=== PATIENT | female | born 1965 | race Caucasian/White ===

== ENCOUNTER 2020-03-12 09:46 | Day surgery (SDC) | payer BC, OTHER ==
[~2020-03-12 09:46] MED LIST: Lactated Ringers 1,000 ML IV SCH; Midazolam 1 MG/ML 2 ML SDV ONE; Propofol 200 MG/20 ML SDV ONE; Sodium Chloride 0.9% 10 ML Syringe FLUSH PRN
--- NOTE | 2020-03-12 12:09 | PCM.PN ---
- General Info Date of Service: 03/12/20 - Review of Systems Systems Review Comment:: 54-year-old female here for right carpal tunnel release. She has a history of numbness and tingling in the fingers of the right hand over the last year. Symptoms have been gradually worsening. She underwent an EMG study which confirmed carpal tunnel syndrome. The site of the proposed surgery is confirmed with the patient and marked. I discussed with her the proposed right carpal tunnel release. We reviewed the operative procedure expectations and perioperative instructions. I also discussed with her that she may not regain full strength in that hand for a few weeks. Her questions were answered and risks reviewed she agrees to proceed. - Patient Data Vitals - Most Recent: Last Vital Signs Temp 97.9 F 03/12/20 10:22 Pulse 70 03/12/20 10:22 Resp 20 03/12/20 10:22 BP 115/69 03/12/20 10:22 Pulse Ox 96 03/12/20 10:22 Weight - Most Recent: 102.058 kg Lab Results Last 24 Hours: Laboratory Results - last 24 hr 03/12/20 Range/Units 10:00 HCG, Qual Negative (NEGATIVE) Med Orders - Current: Current Medications Lactated Ringer's (Ringers, Lactated) 1,000 mls @ 125 mls/hr IV ASDIRECTED [place] Last Admin: 03/12/20 10:35 Dose: 125 mls/hr Documented by: Sodium Chloride (Saline Flush) 10 ml FLUSH ASDIRECTED PRN PRN Reason: Keep Vein Open Discontinued Medications Midazolam HCl (Versed 1 Mg/Ml) Confirm Administered Dose 2 mg .ROUTE .STK-MED ONE Stop: 03/12/20 08:24 Propofol (Diprivan 20 Ml) Confirm Administered Dose 400 mg .ROUTE .STK-MED ONE Stop: 03/12/20 08:24 Sepsis Event Note - Focused Exam Vital Signs: Vital Signs Temp Pulse Resp BP Pulse Ox 03/12/20 10:22 97.9 F 70 20 115/69 96 - Problem List Review Problem List Initiated/Reviewed/Updated: Yes - Assessment Assessment:: Right carpal tunnel syndrome - Plan Plan:: Right carpal tunnel release
[2020-03-12] MEDS ORDERED: Propofol 200 MG/20 ML SDV ONE (12:23)
[2020-03-12] MEDS ORDERED: Midazolam 1 MG/ML 2 ML SDV ONE (12:23)
[2020-03-12] MEDS ORDERED: Bupivacaine 0.25%/EPINEPHrine 1:200,000 30 ML SDV INFILT ONE (12:40)
--- NOTE | 2020-03-12 13:14 | PCM.OPNOTE ---
- General Post-Op/Procedure Note Date of Surgery/Procedure: 03/12/20 Operative Procedure(s): Right Carpal Tunnel Release Findings: Thickening of the right transverse carpal ligament Structures otherwise appear normal Pre Op Diagnosis: Right carpal tunnel syndrome Post-Op Diagnosis: Same Anesthesia Technique: Regional Block Primary Surgeon: Sky Hollins Pathology: none EBL in mLs: 5 Complications: None Condition: Good
--- NOTE | 2020-03-12 15:10 | OR ---
Date of Procedure: 03/12/2020 PREOPERATIVE DIAGNOSIS: Right carpal tunnel syndrome. POSTOPERATIVE DIAGNOSIS: Right carpal tunnel syndrome. OPERATION PERFORMED: Right carpal tunnel release. INDICATIONS FOR SURGERY: This 54-year-old female has an approximately one year history of increasing symptoms of numbness and tingling in the fingers of her right hand. EMG study has confirmed diagnosis of carpal tunnel syndrome and she comes for carpal tunnel release. FINDINGS: The patient's right transverse carpal ligament is thickened causing pressure on the underlying median nerve. The nerve itself and other structures, otherwise, appear normal. DESCRIPTION OF PROCEDURE: The patient was taken to the operating room. She was given IV regional anesthesia of the right hand, which was then sterilely prepped and draped. A longitudinally oriented curvilinear incision was made along the palmar surface of the right wrist and dissection proceeded down onto the transverse carpal ligament, which was then incised over and parallel to the course of the underlying median nerve. The ligament was completely divided at this level as are any potentially constricting fibrous bands proximally and distally. Great care was used to avoid any injury to the underlying nerve or its branches. Once the nerve had been completely released at this location, the wound was irrigated and then closed approximating the skin edges with interrupted 4-0 Prolene in a mattress technique. Antibiotic ointment and sterile dressing were placed. This was held in position with an Torres bandage. The tourniquet was released, and the patient was taken from the operating room in satisfactory condition. ESTIMATED BLOOD LOSS: Less than 5 mL. COMPLICATIONS: None. PROGNOSIS: Good. LAKISHA Hollins MD /[id number]
[2020-03-12 17:16] VITALS: BP 128/62; PULSE 60
== END 2020-03-12 15:15 | disposition home or self-care (01) ==
LOC: LL.SDS 09:46
PROVIDERS: ATTEND Surgery
DX: G56.03 Carpal tunnel syndrome, bilateral upper limbs (principal); I10 Essential (primary) hypertension; E78.5 Hyperlipidemia, unspecified; Z79.899 Other long term (current) drug therapy; Z01.812 Encounter for preprocedural laboratory examination; Z20.828 Contact with and (suspected) exposure to other viral communicable diseases
CPT/HCPCS: 01810; 36415; 64721; 84703; 87635; J2250; J2704; J7120; U0002

== ENCOUNTER 2024-11-29 11:37 | Emergency (ER) | payer BC ==
[2024-11-29 11:56] LABS: BASOPHILS ABSOLUTE AUTO 0.03 K/uL (0.00-0.20); BASOPHILS PERCENT AUTO 0.6 % (0.0-2.0); EOSINOPHILS ABSOLUTE AUTO 0.26 K/uL (0.00-0.50); EOSINOPHILS PERCENT AUTO 5.3 % (0.0-5.0); IMMATURE GRAN ABSOLUTE AUTO 0.01 10^3/uL (0.00-0.04); IMMATURE GRAN PERCENT AUTO 0.2 % (0.0-0.4); LYMPHOCYTES ABSOLUTE AUTO 1.56 K/uL (0.50-3.50); LYMPHOCYTES PERCENT AUTO 31.6 % (10.0-50.0); MONOCYTES ABSOLUTE AUTO 0.48 K/uL (0.00-1.00); MONOCYTES PERCENT AUTO 9.7 % (2.0-14.0); NEUTROPHILS ABSOLUTE AUTO 2.59 K/uL (1.40-7.00); NEUTROPHILS PERCENT AUTO 52.6 % (45.0-80.0); PLATELET COUNT,PLT 238 K/uL (150-350); RED BLOOD CELL COUNT 4.59 M/uL (3.77-5.09); RED CELL DISTRIBUTION WIDTH 14.3 % (11.2-14.1); WHITE BLOOD CELL COUNT,WBC 4.9 K/uL (4.0-10.2)
[2024-11-29 12:16] LABS: ALANINE AMINOTRANSFERASE,ALT 57.0 U/L (12-78); ASPARTATE AMNIOTRANSFERASE,AST 34.0 U/L (15-37); BILIRUBIN TOTAL 0.4 mg/dL (0.2-1.0); BLOOD UREA NITROGEN,BUN 11.0 mg/dL (7-18); CARBON DIOXIDE,CO2 27.7 mmol/L (21.0-32.0); CHLORIDE,CL 100.0 mmol/L (98-107); CREATININE 1.1 mg/dL (0.51-1.17); EST CRCL DRUG DOSING (CG) 52.89 mL/min; POTASSIUM,K 4.5 mmol/L (3.5-5.1); PROTEIN TOTAL,TP 6.7 g/dL (6.4-8.2); SODIUM,NA 138.0 mmol/L (136-145)
[2024-11-29 12:17] LABS: ESTIMATED GFR 58.0 mL/min (>=60)
[2024-11-29 12:30] LABS: GLUCOSE RANDOM 419.0 mg/dL (70-99)
[2024-11-29] MEDS: Sodium Chloride 0.9% 10 ML Syringe FLUSH PRN (12:44)
[2024-11-29] MEDS: Lactated Ringers 1,000 ML IV ONE (12:44)
[2024-11-29] MEDS ORDERED: 50% Dextrose in Water 50 ML Syringe IVPUSH PRN (14:10)
[2024-11-29 14:34] LABS: APPEARANCE,URINE CLEAR; GLUCOSE,URINE >=1000 mg/dL (NEGATIVE); OCCULT BLOOD,URINE SMALL (NEGATIVE)
[2024-11-29 14:41] LABS: EPITHELIAL CELLS,URINE OCCASIONAL /LPF
[2024-11-29 16:20] VITALS: BP 137/88; PULSE 88
== END 2024-11-29 16:00 | disposition home or self-care (01) ==
LOC: LL.ED 11:37
DX: N20.0 Calculus of kidney (principal); E11.65 Type 2 diabetes mellitus with hyperglycemia; I10 Essential (primary) hypertension; Z88.0 Allergy status to penicillin; Z79.899 Other long term (current) drug therapy
CPT/HCPCS: 36415; 74019; 80053; 81001; 82947; 83036; 83690; 83735; 85025; 96360; 99284; 99284-25; J1815-GY; J7120

== ENCOUNTER 2024-11-30 22:33 | Emergency (ER) | payer BC ==
[2024-11-30] MEDS: Ketorolac 15 MG/ML SDV IVPUSH ONE (22:44)
[2024-11-30] MEDS: Sodium Chloride 0.9% 10 ML Syringe FLUSH PRN (22:45)
[2024-11-30] MEDS: Ondansetron 4 MG/2 ML SDV IVPUSH PRN (22:59)
[2024-11-30 23:39] LABS: BASOPHILS ABSOLUTE AUTO 0.04 K/uL (0.00-0.20); BASOPHILS PERCENT AUTO 0.4 % (0.0-2.0); EOSINOPHILS ABSOLUTE AUTO 0.16 K/uL (0.00-0.50); EOSINOPHILS PERCENT AUTO 1.5 % (0.0-5.0); IMMATURE GRAN ABSOLUTE AUTO 0.02 10^3/uL (0.00-0.04); IMMATURE GRAN PERCENT AUTO 0.2 % (0.0-0.4); LYMPHOCYTES ABSOLUTE AUTO 1.58 K/uL (0.50-3.50); LYMPHOCYTES PERCENT AUTO 14.4 % (10.0-50.0); MONOCYTES ABSOLUTE AUTO 0.76 K/uL (0.00-1.00); MONOCYTES PERCENT AUTO 6.9 % (2.0-14.0); NEUTROPHILS ABSOLUTE AUTO 8.45 K/uL (1.40-7.00); NEUTROPHILS PERCENT AUTO 76.6 % (45.0-80.0); PLATELET COUNT,PLT 236 K/uL (150-350); RED BLOOD CELL COUNT 4.69 M/uL (3.77-5.09); RED CELL DISTRIBUTION WIDTH 14.5 % (11.2-14.1); WHITE BLOOD CELL COUNT,WBC 11.0 K/uL (4.0-10.2)
[2024-11-30 23:44] LABS: INR 0.9
[2024-12-01 00:02] LABS: ALANINE AMINOTRANSFERASE,ALT 56.0 U/L (12-78); ASPARTATE AMNIOTRANSFERASE,AST 33.0 U/L (15-37); BILIRUBIN TOTAL 0.3 mg/dL (0.2-1.0); BLOOD UREA NITROGEN,BUN 14.0 mg/dL (7-18); CARBON DIOXIDE,CO2 28.2 mmol/L (21.0-32.0); CHLORIDE,CL 101.0 mmol/L (98-107); CREATININE 1.16 mg/dL (0.51-1.17); EST CRCL DRUG DOSING (CG) 50.15 mL/min; GLUCOSE RANDOM 262.0 mg/dL (70-99); POTASSIUM,K 3.5 mmol/L (3.5-5.1); PROTEIN TOTAL,TP 7.2 g/dL (6.4-8.2); SODIUM,NA 140.0 mmol/L (136-145)
[2024-12-01 00:03] LABS: ESTIMATED GFR 54.0 mL/min (>=60)
[2024-12-01] MEDS ORDERED: Naloxone 0.4 MG/ML SDV IVPUSH PRN (00:24)
[2024-12-01] MEDS: fentaNYL 50 MCG/ML SDV IVPUSH ONE (00:28)
[2024-12-01 01:02] LABS: APPEARANCE,URINE CLOUDY; GLUCOSE,URINE 500 mg/dL (NEGATIVE); OCCULT BLOOD,URINE MODERATE (NEGATIVE)
[2024-12-01 01:10] LABS: EPITHELIAL CELLS,URINE MANY /LPF; OTHER CRYSTALS,URINE MODERATE /HPF
[2024-12-01 02:16] VITALS: BP 142/66; PULSE 78
[2024-12-01] MEDS ORDERED: fentaNYL 50 MCG/ML SDV IVPUSH PRN (02:21)
== END 2024-12-01 03:30 ==
LOC: LL.ED 22:33
DX: N13.2 Hydronephrosis with renal and ureteral calculous obstruction (principal); N39.0 Urinary tract infection, site not specified; E78.00 Pure hypercholesterolemia, unspecified; I10 Essential (primary) hypertension; Z88.0 Allergy status to penicillin; Z79.899 Other long term (current) drug therapy; Z79.4 Long term (current) use of insulin
CPT/HCPCS: 36415; 74176; 80053; 81001; 83735; 85025; 85610; 87086; 87088; 87186; 96374; 96375; 99284; 99285-25; J0696; J1885; J2405; J3010

== ENCOUNTER 2024-12-08 16:01 | Emergency (ER) | payer BC ==
[2024-12-08] MEDS ORDERED: Naloxone 0.4 MG/ML SDV IVPUSH PRN (16:25)
[2024-12-08 16:32] LABS: BASOPHILS ABSOLUTE AUTO 0.04 K/uL (0.00-0.20); BASOPHILS PERCENT AUTO 0.4 % (0.0-2.0); EOSINOPHILS ABSOLUTE AUTO 0.25 K/uL (0.00-0.50); EOSINOPHILS PERCENT AUTO 2.8 % (0.0-5.0); IMMATURE GRAN ABSOLUTE AUTO 0.01 10^3/uL (0.00-0.04); IMMATURE GRAN PERCENT AUTO 0.1 % (0.0-0.4); LYMPHOCYTES ABSOLUTE AUTO 2.20 K/uL (0.50-3.50); LYMPHOCYTES PERCENT AUTO 24.5 % (10.0-50.0); MONOCYTES ABSOLUTE AUTO 0.83 K/uL (0.00-1.00); MONOCYTES PERCENT AUTO 9.2 % (2.0-14.0); NEUTROPHILS ABSOLUTE AUTO 5.66 K/uL (1.40-7.00); NEUTROPHILS PERCENT AUTO 63.0 % (45.0-80.0); PLATELET COUNT,PLT 398 K/uL (150-350); RED BLOOD CELL COUNT 4.83 M/uL (3.77-5.09); RED CELL DISTRIBUTION WIDTH 14.3 % (11.2-14.1); WHITE BLOOD CELL COUNT,WBC 9.0 K/uL (4.0-10.2)
[2024-12-08] MEDS: Ketorolac 15 MG/ML SDV IVPUSH ONE (16:32)
[2024-12-08] MEDS: fentaNYL 50 MCG/ML SDV IVPUSH ONE (16:36)
[2024-12-08] MEDS: Sodium Chloride 0.9% 10 ML Syringe FLUSH PRN (16:40)
[2024-12-08 17:07] LABS: INR 1.1 (0.9-1.1)
[2024-12-08 17:14] LABS: ALANINE AMINOTRANSFERASE,ALT 36 U/L (12-78); ASPARTATE AMNIOTRANSFERASE,AST 26 U/L (15-37); BILIRUBIN TOTAL 0.3 mg/dL (0.2-1.0); BLOOD UREA NITROGEN,BUN 16 mg/dL (7-18); CARBON DIOXIDE,CO2 23.3 mmol/L (21.0-32.0); CHLORIDE,CL 98 mmol/L (98-107); CREATININE 0.95 mg/dL (0.51-1.17); ESTIMATED GFR 69 mL/min (>=60); GLUCOSE RANDOM 123 mg/dL (70-99); POTASSIUM,K 4.3 mmol/L (3.5-5.1); PROTEIN TOTAL,TP 7.4 g/dL (6.4-8.2); SODIUM,NA 135 mmol/L (136-145)
[2024-12-08 17:38] LABS: APPEARANCE,URINE SLIGHTLY CLOUDY; GLUCOSE,URINE NEGATIVE (NEGATIVE); OCCULT BLOOD,URINE LARGE (NEGATIVE)
[2024-12-08 17:52] LABS: EPITHELIAL CELLS,URINE MODERATE /LPF
[2024-12-08] MEDS: Take Home: Ciprofloxacin HCl 500 MG, 6 Tab Pack PO ONE (19:18)
[2024-12-08 20:17] VITALS: BP 130/72; PULSE 70
== END 2024-12-08 19:55 | disposition home or self-care (01) ==
LOC: LL.ED 16:01
DX: N39.0 Urinary tract infection, site not specified (principal); I10 Essential (primary) hypertension; E78.00 Pure hypercholesterolemia, unspecified; Z88.0 Allergy status to penicillin; Z88.1 Allergy status to other antibiotic agents; Z79.4 Long term (current) use of insulin; Z79.899 Other long term (current) drug therapy
CPT/HCPCS: 36415; 74176; 80053; 81001; 82947; 83735; 85025; 85610; 87086; 96374; 96375; 99284; 99284-25; A9270-GY; J1885; J3010

== ENCOUNTER 2024-12-10 10:15 | Emergency (ER) | payer BC ==
[2024-12-10 10:49] LABS: BASOPHILS ABSOLUTE AUTO 0.04 K/uL (0.00-0.20); BASOPHILS PERCENT AUTO 0.6 % (0.0-2.0); EOSINOPHILS ABSOLUTE AUTO 0.38 K/uL (0.00-0.50); EOSINOPHILS PERCENT AUTO 5.8 % (0.0-5.0); IMMATURE GRAN ABSOLUTE AUTO 0.01 10^3/uL (0.00-0.04); IMMATURE GRAN PERCENT AUTO 0.2 % (0.0-0.4); LYMPHOCYTES ABSOLUTE AUTO 1.38 K/uL (0.50-3.50); LYMPHOCYTES PERCENT AUTO 21.0 % (10.0-50.0); MONOCYTES ABSOLUTE AUTO 0.55 K/uL (0.00-1.00); MONOCYTES PERCENT AUTO 8.4 % (2.0-14.0); NEUTROPHILS ABSOLUTE AUTO 4.20 K/uL (1.40-7.00); NEUTROPHILS PERCENT AUTO 64.0 % (45.0-80.0); PLATELET COUNT,PLT 359 K/uL (150-350); RED BLOOD CELL COUNT 4.50 M/uL (3.77-5.09); RED CELL DISTRIBUTION WIDTH 14.1 % (11.2-14.1); WHITE BLOOD CELL COUNT,WBC 6.6 K/uL (4.0-10.2)
[2024-12-10 11:09] LABS: ALANINE AMINOTRANSFERASE,ALT 31 U/L (12-78); ASPARTATE AMNIOTRANSFERASE,AST 26 U/L (15-37); BILIRUBIN TOTAL 0.3 mg/dL (0.2-1.0); BLOOD UREA NITROGEN,BUN 16 mg/dL (7-18); CARBON DIOXIDE,CO2 26.4 mmol/L (21.0-32.0); CHLORIDE,CL 99 mmol/L (98-107); CREATININE 0.94 mg/dL (0.51-1.17); GLUCOSE RANDOM 209 mg/dL (70-99); POTASSIUM,K 4.0 mmol/L (3.5-5.1); PROTEIN TOTAL,TP 7.0 g/dL (6.4-8.2); SODIUM,NA 133 mmol/L (136-145)
[2024-12-10 11:10] LABS: ESTIMATED GFR 69 mL/min (>=60)
[2024-12-10 12:13] VITALS: BP 131/77; PULSE 69
== END 2024-12-10 12:28 | disposition home or self-care (01) ==
LOC: LL.ED 10:15
DX: N13.2 Hydronephrosis with renal and ureteral calculous obstruction (principal); Z98.890 Other specified postprocedural states; E78.00 Pure hypercholesterolemia, unspecified; Z79.899 Other long term (current) drug therapy; Z88.0 Allergy status to penicillin
CPT/HCPCS: 36415; 74019; 80053; 85025; 99284